=== PATIENT | female | born 1985 | race Caucasian/White ===

== ENCOUNTER 2019-08-17 01:57 | Inpatient (IN) ==
[2019-08-17] MEDS ORDERED: OXYTOCIN 30 UNITS/500 ML BAG IV PRN ×2 (02:17→05:17)
--- NOTE | 2019-08-17 02:21 | History & Physical Report ---
Date of Service August 17, 2019 Assessment & Plan (1) : Admit to L&D. Labs, EFM/toco, IV fluids. OK for epidural when she desires. Anticipate . History of Present Illness Chief Complaint: spontaneous labor Primary Care Provider: CLARIBEL PCP 34yo @ 41 0/7 presents with regular contractions and pelvic pressure. She had devi bulb placed last night in preparation for IOL for postdates. Since placement, contractions have become more frequent. No leaking of fluid. Scant vaginal bleeding. + movement. complicated by hypothyroidism. Allergies Allergy/AdvReac Type Severity Reaction Status Date / Time sulfamethoxazole AdvReac Severe Nausea Verified 08/17/19 02:21 [From Bactrim] Home Medications Home Medications Medication Instructions Recorded Confirmed Type PNV cmb#95-ferrous fumarate-FA 1 tab PO DAILY 01/22/19 08/17/19 History [] levothyroxine [Synthroid] 75 mcg PO DAILY 01/22/19 08/17/19 History Patient History Medical History 11 weeks gestation of History of varicella Hypothyroidism currently taking 75mcg of synthroid Surgical History S/P tonsillectomy at age 21 S/P wisdom tooth extraction at age 21 Family History Grandmother (Maternal) Cardiac disorder Grandmother (Paternal) Cardiac disorder Grandfather (Maternal) Cardiac disorder Grandfather (Paternal) Cardiac disorder Mother Hypertension Thyroid disease Father Hypertension Social History Preferred Language: Welsh 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 Devi bulb removed with gentle traction. FHT cat 1 Rough And Ready Q2 Constitutional: WD/WN, vitals as above Respiratory: normal respiratory effort, lungs clear to auscultation no respiratory distress Cardiovascular: Rate/Rhythm: regular rate and regular rhythm Gastrointestinal (Abdomen): Inspection/Auscultation: abdomen normal to inspection Percussion/Palpation: abdomen soft; abdomen nontender Gravid. No s/s chorio or abruption. Skin: no rashes, warm and dry Psychiatric: A+Ox3, euthymic affect Results & Data Vital Signs (Past 12 Hours) Vital Signs Pulse BP 08/17/19 02:17 84 134/89
[2019-08-17] MEDS ORDERED: BUPIVACAINE 0.25% 30 ML VIAL ONE (02:24)
[2019-08-17] MEDS ORDERED: ePHEDrine sulfate 50 MG/ML AMP ONE (02:24)
[2019-08-17] MEDS ORDERED: fentaNYL 2MCG/ML ROPIV 1.25MG/ML 100 ML BAG EPI ONE (02:25)
[2019-08-17] MEDS ORDERED: fentaNYL citrate 100 MCG/2 ML VIAL ONE (02:25)
[2019-08-17] MEDS: LACTATED RINGER'S 1,000 ML IV PRN ×2 (02:28→03:36)
[2019-08-17 02:32] LABS: Hematocrit (blood only) 35.6 % (37-47); Hemoglobin 12.7 g/dL (12.0-16.0); Mean Corpuscular Hemoglobin 32.2 pg (25-34); Mean Corpuscular Volume 90.4 fL (80-100); Mean Platelet Volume 10.7 fL (7.4-10.4); Platelet Count 202 K/uL (130-400); RDW Coefficient of Variation 14.7 % (11.5-14.5); RDW Standard Deviation 47.9 fL (36.4-46.3); Red Blood Count 3.94 M/uL (4.2-5.4); White Blood Count 12.37 K/uL (4.8-10.8)
[2019-08-17 02:34] LABS: Mean Corpuscular Hgb Conc 35.7 g/dL (32-36)
[2019-08-17] MEDS ORDERED: NALOXONE HCL 1 MG in SODIUM CHLORIDE 0.9% 1000ML 1,000 ML IV PRN (02:59)
[2019-08-17] MEDS ORDERED: NALOXONE HCL 0.4 MG/1 ML VIAL/CARP IV PRN (02:59)
[2019-08-17] MEDS ORDERED: ONDANSETRON INJ 2 MG/ML 2 ML VIAL IV PRN (02:59)
[2019-08-17] MEDS ORDERED: fentaNYL 2MCG/ML ROPIV 1.25MG/ML 100 ML BAG EPI PRN (02:59)
[2019-08-17] MEDS ORDERED: DiphenhydrAMINE HCL 50 MG/ML VIAL IV PRN (02:59)
[2019-08-17] MEDS ORDERED: ePHEDrine sulfate 50 MG/ML AMP IV PRN (02:59)
[2019-08-17] MEDS ORDERED: NALBUPHINE HCL INJ 10 MG/ML AMP IV PRN (02:59)
--- NOTE | 2019-08-17 03:02 | Anesthesiology Consultation ---
Date of Service August 17, 2019 Assessment & Plan Chart Review Chart Review: Patient NOT seen in Pre Admission Testing and Acceptable Risk for Labor Epidural Consults Requested none ASA ASA2 Proposed Anesthesia Anesthesia Type: Labor Epidural and CSE Risk / Benefits Reviewed With: PT / POA / Parent / Guardian, Accepts Plan and Informed Consent Obtained History Height/Weight Height: 5 ft 3 in Weight: 84.368 kg Allergies Allergy/AdvReac Type Severity Reaction Status Date / Time sulfamethoxazole AdvReac Severe Nausea Verified 08/17/19 02:21 [From Bactrim] Medications Home Medications Medication Instructions Recorded Confirmed Last Taken PNV cmb#95-ferrous fumarate-FA 1 tab PO DAILY 01/22/19 08/17/19 08/16/19 22:30 [] levothyroxine [Synthroid] 75 mcg PO DAILY 01/22/19 08/17/19 08/16/19 07:30 Active Medications Generic Name Dose Route Start Last Admin Trade Name Freq PRN Reason Stop Dose Admin Lactated Ringer's 1,000 mls @ 125 mls/hr 08/17/19 02:17 08/17/19 02:28 Lr IV 08/19/19 02:16 999 mls/hr .Q8H PRN Administration L&D Protocol Protocol NPO Date Last Intake of Fluids: 08/17/19 Time Last Intake of Fluids: 02:30 Date Last Intake of Solids: 08/16/19 Time Last Intake of Solids: 15:00 Past Medical History Medical History 11 weeks gestation of History of varicella Hypothyroidism currently taking 75mcg of synthroid Exercise / Class Metabolic Activity II 4-5 Yardwork/Stairs/Walk up hill Past Family History Family History Grandmother (Maternal) Cardiac disorder Grandmother (Paternal) Cardiac disorder Grandfather (Maternal) Cardiac disorder Grandfather (Paternal) Cardiac disorder Mother Hypertension Thyroid disease Father Hypertension Past Surgical History Surgical History S/P tonsillectomy at age 21 S/P wisdom tooth extraction at age 21 Past Anesthesia History No Hx of Anesthesia Complications and No Family Hx of Anesthesia Complications Social History Smoking Status: Never smoker Hx Alcohol Use: No Hx Substance Use: No Review of Systems no chest pain or sob Physical Exam Vital Signs Last Vital Signs Temp 36.7 C 08/17/19 02:18 Pulse 83 08/17/19 02:57 Resp 20 08/17/19 02:18 BP 134/89 08/17/19 02:18 Pulse Ox 98 08/17/19 02:57 ENMT Mouth: no TMJ abnormality Thyromental Distance: > or= 3.5 Finger Breadths Mallampati Class: II Neck normal visual inspection Respiratory normal respiratory effort Auscultation: lungs clear to auscultation bilaterally Cardiovascular Rate/Rhythm: regular rate and regular rhythm Musculoskeletal Spine: normal cervical ROM Neurologic moves all extremities Psychiatric Orientation: alert and oriented x 3 Testing Laboratory Results 08/17/19 02:23
--- NOTE | 2019-08-17 04:23 | Delivery Summary ---
Vaginal Delivery Summary Date of Service August 17, 2019 Vaginal Delivery Summary Vaginal Delivery Summary: Pre-delivery diagnoses: 34yo @ 41 0/7, cervical ripening and spontaneous labor, hypothyroidism Post-delivery diagnoses: same Procedure: spontaneous vaginal delivery, repair of 2nd degree perineal laceration and periclitoral laceration Surgeon: Eliza Barrera DO Complications: none Findings: Viable male . Apgars: 8/9 . Weight pending, please see nursery records. Estimated blood loss: 300ml Description of delivery: The patient progressed to complete with epidural anesthesia. She then began to push. She spontaneously vaginally delivered a viable from the cephalic presentation. The head delivered in LISETTE position. Nuchal cord x 1, tight, delivered through. The anterior shoulder delivered, followed by the posterior shoulder, followed by the body. The baby was placed on mother's abdomen and a spontaneous cry was heard. Delayed cord clamping was employed, and the cord was doubly clamped and cut. Cord blood was obtained. The placenta was delivered spontaneously intact with a 3-vessel cord. The uterus and vagina were swept of clots and debris. IV pitocin was given. The uterus became firm. The cervix, vagina, and perineum were inspected and a 2nd degree perineal laceration and a superficial periclitoral laceration were noted. These were repaired in standard fashion with 3-0 vicryl. Excellent hemostasis was observed. The mother and baby are recovering in stable and good condition in the room. Sponge, needle, and instrument counts were correct x 2. Eliza Barrera DO [facility]
[2019-08-17] MEDS ORDERED: BENZOCAINE 20% AER SPR 82.5 GM CAN EXT PRN (05:17)
[2019-08-17] MEDS ORDERED: OXYCODONE/ACETAMINOPHEN 5mg/325mg TAB PO PRN (05:17)
[2019-08-17] MEDS ORDERED: DIPHTHERIA/TETANUS/PERTUSSIS 0.5 ML SYR/VIAL IM ONE (05:17)
[2019-08-17] MEDS ORDERED: SUPERCREAM 0.870% 15 GM JAR EXT PRN (05:17)
[2019-08-17] MEDS ORDERED: bisacodyL 10 MG SUPP PR PRN (05:17)
[2019-08-17] MEDS ORDERED: HYDROCORTISONE ACETATE 25 MG SUPP PR PRN (05:17)
[2019-08-17] MEDS: ACETAMINOPHEN 325 MG TAB PO PRN ×4 (05:35→23:26)
--- NOTE | 2019-08-17 07:03 | Anesthesia Procedure Note ---
Date of Service August 17, 2019 Anesthesia Post Epidural Note Vital Signs Vital Signs: Temp Pulse Resp BP Pulse Ox 36.7 C 82 18 148/68 H 97 08/17/19 04:20 08/17/19 06:23 08/17/19 04:20 08/17/19 06:08/17/19 04:17 Pain Intensity Episiotomy/Laceration: Pain Intensity: 3 Notes Mental Status: alert / awake / arousable Nausea / Vomiting: adequately controlled Pain: adequately controlled Airway Patency, RR, SpO2: stable & adequate BP & HR: stable & adequate Hydration State: stable & adequate Neuraxial Anesthesia: was administered and sensory block is resolving Anesthetic Complications: no major complications apparent Epidural: Removed without complications and With tip intact
[2019-08-17] MEDS: LEVOTHYROXINE SODIUM 75 MCG TABLET PO SCH (07:13)
[2019-08-17] MEDS: PRENATAL VITAMIN 1 TAB PO SCH (07:49)
[2019-08-17] MEDS: IBUPROFEN 600 MG TAB PO PRN ×3 (07:49→20:30)
[2019-08-17] MEDS: DOCUSATE SODIUM 100 MG CAP PO SCH ×2 (07:49→20:30)
[2019-08-17] MEDS ORDERED: LEVOTHYROXINE SODIUM 75 MCG TABLET PO SCH (09:00)
[2019-08-18] MEDS: IBUPROFEN 600 MG TAB PO PRN ×5 (03:05→19:35)
--- NOTE | 2019-08-18 05:50 | Obstetrical Progress Note ---
Date of Service <Shyanne Cuevas - Last Filed: 08/18/19 06:46> August 18, 2019 Assessment & Plan <Shyanne Cuevas - Last Filed: 08/18/19 06:46> (1) Encounter for care and examination after delivery: 34 yo F PPD #1 following vaginal delivery at 41w0d, doing well and without complaints this morning. - PPD #1 - Feels well, ambulating well, voiding well. - Will continue routine care. - Following d/c will have f/u in 6 weeks. - Blood type O+, Rubella immune. Day #:: 1 <Jose Rock Jr, MD, FACOG - Last Filed: 08/18/19 08:00> (1) Encounter for care and examination after delivery: - going to try a humidifier in the room Subjective <Shyanne Cuevas - Last Filed: 08/18/19 06:46> Celi is a 34 yo female ; PPD # 1 following spontaneous vaginal delivery at 41w0d; doing well this AM; no abdominal cramping/pain; voiding well, passing gas but no BM; tolerating meals overnight, able to ambulate some within the room. Some persistent spotting this morning but improved from yesterday. Review of Systems Constitutional: denies fever, chills, sweats, headache Respiratory: denies SOB, difficulty breathing Cardiac: denies CP, chest palpitations, chest pressure Breast: denies breast pain : denies dysuria <Jose Rock Jr, MD, FACOG - Last Filed: 08/18/19 08:00> feels a little "stuffy" Physical Exam <Shyanne Cuevas - Last Filed: 08/18/19 06:46> General: patient is alert and oriented, in NAD Cardiac: +S1/S2, no murmurs rubs or gallops Respiratory: lungs CTA b/l, anteriorly and posteriorly, no wheezes rales or rhonchi, no increased work of breathing, symmetric chest rise, no respiratory distress Abdomen: soft, NT, +bowel sounds Uterus: uterine fundus firm, palpable 1cm below the umbilicus Lower Extremities: no LE edema or swelling, no deep calf pain, Yuly's sign negative b/l Results & Data <Shyanne Cuevas, DO - Last Filed: 08/18/19 06:46> Vital Signs (Past 12 Hours) Vital Signs Temp Resp BP Pulse Ox 08/17/19 23:30 36.7 C 16 109/67 97 08/17/19 20:15 36.7 C 20 127/78 97 Medications Administered Current Medications Acetaminophen (Tylenol) 650 mg PO Q6H PRN PRN Reason: Pain/CRESPO/Fever Stop: 09/16/19 05:16 Last Admin: 08/17/19 23:26 Dose: 650 mg Documented by: Benzocaine (Dermoplast Pain Relieving [place]) 1 appln EXT PRN PRN PRN Reason: Perineal Discomfort Stop: 09/16/19 05:16 Last Admin: 08/17/19 05:36 Dose: 82.5 appln Documented by: Bisacodyl (Dulcolax) 10 mg NV DAILY PRN PRN Reason: No BM on 2nd post- day Stop: 09/16/19 05:16 Bisacodyl (Dulcolax) 5 mg PO 1999 [facility] Stop: 08/18/19 20:01 Cocaine HCl (Supercream 0.870%) 1 gm EXT BID PRN PRN Reason: Hemorrhoidal Inflammation Stop: 08/31/19 05:16 Docusate Sodium (Colace) 100 mg PO DAILY@08,21 [facility] Stop: 09/16/19 07:59 Last Admin: 08/17/19 20:30 Dose: 100 mg Documented by: Hydrocortisone (Anusol Hc) 25 mg NV BID PRN PRN Reason: Hemorrhoidal Inflammation Stop: 09/16/19 05:16 Oxytocin (Pitocin) 30 units in 500 mls @ 333.333 mls/hr IV .Q1H30M PRN; Protocol PRN Reason: Bleeding Control Stop: 09/16/19 05:16 Ibuprofen (Motrin) 600 mg PO Q4H PRN PRN Reason: Pain/CRESPO/Cramping/Fever Stop: 09/16/19 05:16 Last Admin: 08/18/19 03:05 Dose: 600 mg Documented by: Levothyroxine Sodium (Synthroid) 75 mcg PO DAILYBB [facility] Stop: 09/16/19 06:29 Last Admin: 08/17/19 07:13 Dose: Not Given Documented by: Oxycodone/Acetaminophen (Percocet 5mg/325mg) 1 tab PO Q4H PRN PRN Reason: Pain not relieved by... Stop: 08/31/19 05:16 Prenat Multivit/Lucas/Iron/Folic Ac ( Vitamin) 1 tab PO DAILY@08 [facility] Stop: 09/16/19 07:59 Last Admin: 08/17/19 07:49 Dose: 1 tab Documented by: <Jose Rock Jr, MD, FACOG - Last Filed: 08/18/19 08:00> Co-Signing Physician Notes Resident Physician Supervision Note: I was present with Dr. Light during the history and exam. I discussed the case with the resident and agree with the findings and plan as documented in the note. Any exceptions or clarifications are listed here: Humidifer Documented By: Jose Rock Jr, MD, FACOG Resident Activity Tracking <Shyanne Cuevas DO - Last Filed: 08/18/19 06:46> Resident Involvement: Resident Care Provided Care Provided: Adult Hospital Medicine
[2019-08-18] MEDS: LEVOTHYROXINE SODIUM 75 MCG TABLET PO SCH (06:20)
[2019-08-18 07:19] LABS: Hematocrit (blood only) 29.3 % (37-47); Hemoglobin 10.2 g/dL (12.0-16.0); Mean Corpuscular Hemoglobin 32.1 pg (25-34); Mean Corpuscular Hgb Conc 34.8 g/dL (32-36); Mean Corpuscular Volume 92.1 fL (80-100); Mean Platelet Volume 10.7 fL (7.4-10.4); Platelet Count 171 K/uL (130-400); RDW Coefficient of Variation 15.3 % (11.5-14.5); RDW Standard Deviation 50.8 fL (36.4-46.3); Red Blood Count 3.18 M/uL (4.2-5.4); White Blood Count 10.33 K/uL (4.8-10.8)
[2019-08-18] MEDS: DOCUSATE SODIUM 100 MG CAP PO SCH ×2 (07:49→19:35)
[2019-08-18] MEDS: PRENATAL VITAMIN 1 TAB PO SCH (07:49)
[2019-08-18] MEDS: ACETAMINOPHEN 325 MG TAB PO PRN ×2 (10:58→17:25)
[2019-08-18] MEDS ORDERED: bisacodyL 5 MG TABEC PO SCH (20:00)
[2019-08-19] MEDS: IBUPROFEN 600 MG TAB PO PRN ×4 (02:45→20:22)
[2019-08-19] MEDS: ACETAMINOPHEN 325 MG TAB PO PRN (05:46)
[2019-08-19] MEDS: LEVOTHYROXINE SODIUM 75 MCG TABLET PO SCH (05:46)
--- NOTE | 2019-08-19 06:20 | Obstetrical Progress Note ---
Date of Service <Shyanne Cuevas - Last Filed: 08/19/19 07:00> August 19, 2019 Assessment & Plan <Shyanne Mason, DO - Last Filed: 08/19/19 07:00> (1) Encounter for care and examination after delivery: 34 yo F PPD #2 following vaginal delivery at 41w0d, doing well and without complaints this morning. - PPD #2 - Feels well, ambulating well, voiding well. - For discharge today. - Following d/c will have f/u in 6 weeks. - Blood type O+, Rubella immune. - Discussed discharge instructions with the pt and answered any questions. Day #:: 2 Subjective <Shyanne TsaiDO akiko - Last Filed: 08/19/19 07:00> Celi is a 34 yo female ; PPD # 2 following vaginal delivery at 41w0d; doing well this AM; no abdominal cramping/pain; voiding well, passing gas and +BM; tolerating meals overnight, able to ambulate some within the room. Some persistent spotting this morning but improved from yesterday. Review of Systems Constitutional: denies fever, chills, sweats, headache Respiratory: denies SOB, difficulty breathing Cardiac: denies CP, chest palpitations, chest pressure Breast: denies breast pain : denies dysuria Physical Exam <Shyanne Cuevas DO - Last Filed: 08/19/19 07:00> General: patient is alert and oriented, in NAD Cardiac: +S1/S2, no murmurs rubs or gallops Respiratory: lungs CTA b/l, anteriorly and posteriorly, no wheezes rales or rhonchi, no increased work of breathing, symmetric chest rise, no respiratory distress Abdomen: soft, NT, +bowel sounds Uterus: uterine fundus firm, palpable 2cm below the umbilicus Lower Extremities: no LE edema or swelling, no deep calf pain, Yuly's sign negative b/l Results & Data <Shyanne Cuevas DO - Last Filed: 08/19/19 07:00> Vital Signs (Past 12 Hours) Vital Signs Temp Pulse Resp BP 08/18/19 23:05 36.8 C 74 18 119/73 08/18/19 20:45 36.8 C 84 18 126/74 Laboratory Results Laboratory Results - last 24 hr 08/18/19 07:08 WBC 10.33 RBC 3.18 L Hgb 10.2 L Hct 29.3 L MCV 92.1 MCH 32.1 MCHC 34.8 RDW Std Deviation 50.8 H RDW Coeff of Rohit 15.3 H Plt Count 171 MPV 10.7 H Medications Administered Current Medications Acetaminophen (Tylenol) 650 mg PO Q6H PRN PRN Reason: Pain/CRESPO/Fever Stop: 09/16/19 05:16 Last Admin: 08/19/19 05:46 Dose: 650 mg Documented by: Benzocaine (Dermoplast Pain Relieving [place]) 1 appln EXT PRN PRN PRN Reason: Perineal Discomfort Stop: 09/16/19 05:16 Last Admin: 08/17/19 05:36 Dose: 82.5 appln Documented by: Bisacodyl (Dulcolax) 10 mg [place] DAILY PRN PRN Reason: No BM on 2nd post- day Stop: 09/16/19 05:16 Cocaine HCl (Supercream 0.870%) 1 gm EXT BID PRN PRN Reason: Hemorrhoidal Inflammation Stop: 08/31/19 05:16 Last Admin: 08/18/19 15:29 Dose: 1 gm Documented by: Docusate Sodium (Colace) 100 mg PO DAILY@08,21 [facility] Stop: 09/16/19 07:59 Last Admin: 08/18/19 19:35 Dose: 100 mg Documented by: Hydrocortisone (Anusol Hc) 25 mg [place] BID PRN PRN Reason: Hemorrhoidal Inflammation Stop: 09/16/19 05:16 Oxytocin (Pitocin) 30 units in 500 mls @ 333.333 mls/hr IV .Q1H30M PRN; Protocol PRN Reason: Bleeding Control Stop: 09/16/19 05:16 Ibuprofen (Motrin) 600 mg PO Q4H PRN PRN Reason: Pain/CRESPO/Cramping/Fever Stop: 09/16/19 05:16 Last Admin: 08/19/19 02:45 Dose: 600 mg Documented by: Levothyroxine Sodium (Synthroid) 75 mcg PO DAILYBB [facility] Stop: 09/16/19 06:29 Last Admin: 08/19/19 05:46 Dose: 75 mcg Documented by: Oxycodone/Acetaminophen (Percocet 5mg/325mg) 1 tab PO Q4H PRN PRN Reason: Pain not relieved by... Stop: 08/31/19 05:16 Prenat Multivit/Incident Response Engineer/Iron/Folic Ac ( Vitamin) 1 tab PO DAILY@08 [facility] Stop: 09/16/19 07:59 Last Admin: 08/18/19 07:49 Dose: 1 tab Documented by: <Abrahan Mcbride MD, FACOG - Last Filed: 08/19/19 07:11> Co-Signing Physician Notes Resident Physician Supervision Note: I was present with Dr. Light during the history and exam. I discussed the case with the resident and agree with the findings and plan as documented in the note. Any exceptions or clarifications are listed here: [None] Documented By: Abrahan Mcbride MD, FACOG Resident Activity Tracking <Shyanne Cuevas DO - Last Filed: 08/19/19 07:00> Resident Involvement: Resident Care Provided Care Provided: Adult Hospital Medicine
[2019-08-19 07:20] LABS: Hematocrit (blood only) 28.1 % (37-47); Hemoglobin 9.5 g/dL (12.0-16.0)
[2019-08-19] MEDS: PRENATAL VITAMIN 1 TAB PO SCH (08:51)
[2019-08-19] MEDS: DOCUSATE SODIUM 100 MG CAP PO SCH ×2 (08:51→20:22)
== END 2019-08-19 20:55 | disposition home or self-care (01) | DRG 807 ==
LOC: 4S1 01:57 → 4S2 07:23

== ENCOUNTER 2024-06-04 12:58 | Inpatient (IN) ==
[2024-06-04] MEDS ORDERED: ACETAMINOPHEN 500 MG TAB PO PRN (14:25)
[2024-06-04] MEDS ORDERED: CALCIUM CARBONATE 500 MG CHEWABLE TAB PO PRN (14:25)
[2024-06-04] MEDS ORDERED: LIDOCAINE 1% LOCAL 20 ML VIAL INFIL PRN (14:25)
--- NOTE | 2024-06-04 14:27 | History & Physical Report ---
Date of Service June 04, 2024 Assessment & Plan (1) demise before 22 weeks with retention of fetus: Plan: Celi is a 38-year-old G4, P2 with a demise measuring at 20 weeks 5 days gestational age based on ultrasound yesterday. Has opted to proceed with induction of labor will start with Cytotec 800 mcg patient dose and will continue to redosing at 400 mcg every 3-4 hours until delivery. Findings reviewed with patient again today and answered all questions. Admission and Anticipated Discharge Date Admission Date: June 04, 2024 History of Present Illness Primary Care Provider: Virginia Gupta DO Celi is a 38-year-old G4, P2 with a demise diagnosed yesterday in clinic measuring at 20 weeks 5 days gestational age. Reviewed findings from imaging again today. The diagnosis of the demise and available treatment options. Has opted for induction of labor. Allergies Allergy/AdvReac Type Severity Reaction Status Date / Time trimethoprim [From Bactrim] Allergy Intermediate NAUSEA/VOMI Verified 06/03/24 10:52 TING sulfamethoxazole AdvReac Severe Nausea Verified 06/03/24 10:52 [From Bactrim] Home Medications Medication Instructions Recorded Confirmed Type vit no.95-ferrous 1 tab PO DAILY 01/22/19 06/04/24 History fumarate 28 mg-folic acid 800 mcg tablet () levothyroxine 75 mcg tablet 75 mcg PO DAILY 03/08/21 06/04/24 History (Synthroid) metoclopramide HCl 10 mg tablet 10 mg PO Q6H PRN nausea and 02/09/24 06/04/24 Rx (Reglan) vomiting #14 tabs cholecalciferol (vitamin D3) 25 25 mcg PO DAILY 02/20/24 06/04/24 History mcg (1,000 unit) capsule (Vitamin D3) diphenhydramine HCl 50 mg capsule 50 mg PO HS PRN SLEEP/NAUSEA 02/20/24 06/04/24 History (Unisom SleepGels) doxylamine 10 mg-pyridoxine (vit 1 tab PO DAILY #14 tabs 02/20/24 06/04/24 Rx B6) 10 mg tablet,delayed release (Diclegis) promethazine 12.5 mg rectal 12.5 mg [place] Q6H PRN nausea and 02/20/24 06/04/24 Rx suppository vomiting #12 ea pyridoxine (vitamin B6) 100 mg 100 mg PO HS 02/20/24 06/03/24 History tablet (Vitamin B-6) ondansetron 4 mg disintegrating 4 mg PO Q6H PRN nausea and 04/09/24 06/04/24 Rx tablet vomiting #20 tabs Patient History Medical History Dysmenorrhea Nocturia Insomnia Adult hypothyroidism Acute left otitis media Sinusitis RAD (reactive airway disease) with wheezing Ganglion cyst of wrist Hair loss History of varicella + chicken pox Hypothyroidism currently taking 75mcg of synthroid Surgical History S/P tonsillectomy at age 21 S/P wisdom tooth extraction at age 21 Family History Grandmother (Maternal) Cardiac disorder Grandmother (Paternal) Cardiac disorder Myocardial infarction Grandfather (Maternal) Cardiac disorder Colorectal cancer Grandfather (Paternal) Cardiac disorder Myocardial infarction Mother Hypertension Thyroid disease Father Hypertension Myocardial infarction dec Aunt Breast cancer Denies family history of Ovarian cancer Prostate cancer Social History Smoking Status: Never smoker Do You Dip or Chew Tobacco: No; Hx Alcohol Use: No Hx Substance Use: No 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 Beliefs That Will Affect Care: None marital status: Current Living Situation: Family Current Living Situation Comment: lives with spouse, 2 children, dog, cat- spouse changing litter current occupational status: other current occupation: homemaker Other Information That Helps Us Care for You: No Feels Safe at Home: Yes Safety Concerns: Feels Safe At This Time Assistive Devices: None Physical Exam Genitourinary: normal external appearance Manual OB Exam: + cervical dilation (Closed) Results & Data Vital Signs (Past 12 Hours) Vital Signs Temp Pulse Resp BP 06/04/24 13:33 85 132/80 06/04/24 13:20 36.6 C 18 Coding Level of Care Code 57207 INT INP/OBS CARE 2/55MIN Diagnoses demise before 22 weeks with retention of fetus O36.4XX0
[2024-06-04] MEDS: miSOPROStoL 200 MCG TAB PV ONE (14:37)
[2024-06-04] MEDS ORDERED: IBUPROFEN 800 MG TAB PO PRN (14:55)
[2024-06-04 15:15] LABS: Hematocrit (blood only) 35.3 % (37.0-47.0); Hemoglobin 12.5 g/dl (12.0-16.0); Mean Corpuscular Hemoglobin 31.9 pg (25.0-34.0); Mean Corpuscular Hgb Conc 35.4 g/dL (32.0-36.0); Mean Corpuscular Volume 90.1 fL (80.0-100.0); Mean Platelet Volume 10.5 fL (9.4-12.4); Platelet Count 230 K/uL (130-400); RDW Coefficient of Variation 13.2 % (11.5-14.5); RDW Standard Deviation 42.8 fL (36.4-46.3); Red Blood Count 3.92 M/uL (4.20-5.40); White Blood Count 9.95 K/ul (4.8-10.8)
[2024-06-04] MEDS: miSOPROStoL 200 MCG TAB SL SCH (17:38)
[2024-06-04] MEDS: LACTATED RINGER'S 1,000 ML IV PRN (20:05)
[2024-06-04] MEDS ORDERED: BUPIVACAINE 0.25% PF 30 ML VIAL EPI PRN (20:06)
[2024-06-04] MEDS ORDERED: NALOXONE HCL 1 MG in SODIUM CHLORIDE 0.9% 1,000 ML IV PRN (20:06)
[2024-06-04] MEDS ORDERED: NALBUPHINE HCL 5 MG in SYRINGE 0 ML IV PRN (20:06)
[2024-06-04] MEDS ORDERED: ePHEDrine sulfate 50 MG/ML AMP IV PRN (20:06)
[2024-06-04] MEDS ORDERED: SODIUM CHLORIDE 0.9% PF INJ 10 ML VIAL EPI PRN (20:06)
[2024-06-04] MEDS ORDERED: NALOXONE HCL 0.4 MG/1 ML VIAL/CARP IV PRN (20:06)
[2024-06-04] MEDS ORDERED: LIDOCAINE 2% MPF LOCAL 5 ML VIAL EPI PRN (20:06)
[2024-06-04] MEDS ORDERED: diphenhydrAMINE 50 MG/ML VIAL IV PRN (20:06)
[2024-06-04] MEDS ORDERED: fentaNYL citrate PF 100 MCG/2 ML VIAL EPI PRN (20:06)
[2024-06-04] MEDS ORDERED: ROPIVACAINE 0.5% PF 5 MG/ML 20 ML VIAL EPI PRN (20:06)
--- NOTE | 2024-06-04 20:09 | Anesthesiology Consultation ---
Date of Service June 04, 2024 Assessment & Plan ASA ASA2 Proposed Anesthesia Anesthesia Type: Labor Epidural Risk / Benefits Reviewed With: PT / POA / Parent / Guardian, Accepts Plan and Informed Consent Obtained History Height/Weight Height: 5 ft 3 in Weight: 82.1 kg Allergies Allergy/AdvReac Type Severity Reaction Status Date / Time trimethoprim [From Bactrim] Allergy Intermediate NAUSEA/VOMI Verified 06/03/24 10:52 TING sulfamethoxazole AdvReac Severe Nausea Verified 06/03/24 10:52 [From Bactrim] Medications Home Medications Medication Instructions Recorded Confirmed Last Taken vit no.95-ferrous 1 tab PO DAILY 01/22/19 06/04/24 02/20/24 fumarate 28 mg-folic acid 800 mcg tablet () levothyroxine 75 mcg tablet 75 mcg PO DAILY 03/08/21 06/04/24 06/04/24 07:00 (Synthroid) metoclopramide HCl 10 mg tablet 10 mg PO Q6H PRN nausea and 02/09/24 06/04/24 Unknown (Reglan) vomiting #14 tabs cholecalciferol (vitamin D3) 25 25 mcg PO DAILY 02/20/24 06/04/24 02/20/24 mcg (1,000 unit) capsule (Vitamin D3) diphenhydramine HCl 50 mg capsule 50 mg PO HS PRN SLEEP/NAUSEA 02/20/24 06/04/24 Unknown (Unisom SleepGels) doxylamine 10 mg-pyridoxine (vit 1 tab PO DAILY #14 tabs 02/20/24 06/04/24 Unknown B6) 10 mg tablet,delayed release (Diclegis) promethazine 12.5 mg rectal 12.5 mg [place] Q6H PRN nausea and 02/20/24 06/04/24 Unknown suppository vomiting #12 ea pyridoxine (vitamin B6) 100 mg 100 mg PO HS 02/20/24 06/03/24 02/19/24 tablet (Vitamin B-6) ondansetron 4 mg disintegrating 4 mg PO Q6H PRN nausea and 04/09/24 06/04/24 Unknown tablet vomiting #20 tabs Active Medications Generic Name Dose Route Start Last Admin Trade Name Freq PRN Reason Stop Dose Admin Lactated Ringer's 1,000 mls @ 125 mls/hr 06/04/24 14:25 06/04/24 20:05 Lr IV 06/06/24 14:24 999 mls/hr .Q8H PRN Administration L&D Protocol Protocol Misoprostol 400 mcg 06/04/24 17:15 06/04/24 17:38 Misoprostol 200 Mcg Tab SL 07/04/24 17:14 400 mcg Q3H MYRNA Administration Past Medical History Medical History Dysmenorrhea Nocturia Insomnia Adult hypothyroidism Acute left otitis media Sinusitis RAD (reactive airway disease) with wheezing Ganglion cyst of wrist Hair loss History of varicella + chicken pox Hypothyroidism currently taking 75mcg of synthroid Exercise / Class Metabolic Activity II 4-5 Yardwork/Stairs/Walk up hill Past Family History Family History Grandmother (Maternal) Cardiac disorder Grandmother (Paternal) Cardiac disorder Myocardial infarction Grandfather (Maternal) Cardiac disorder Colorectal cancer Grandfather (Paternal) Cardiac disorder Myocardial infarction Mother Hypertension Thyroid disease Father Hypertension Myocardial infarction dec Aunt Breast cancer Denies family history of Ovarian cancer Prostate cancer Past Surgical History Surgical History S/P tonsillectomy at age 21 S/P wisdom tooth extraction at age 21 Past Anesthesia History No Hx of Anesthesia Complications and No Family Hx of Anesthesia Complications History of PONV No Hx of PONV and No Hx of Motion Sickness Social History Smoking Status: Never smoker Do You Dip or Chew Tobacco: No Hx Alcohol Use: No Hx Substance Use: No substance use type: does not use Review of Systems denies fever/cough/ colds/ chest pain/ SOB/ JORDAN denies JORDAN Physical Exam Vital Signs Last Vital Signs Temp 36.6 C 06/04/24 13:20 Pulse 93 H 06/04/24 20:43 Resp 20 06/04/24 16:17 BP 114/58 L 06/04/24 20:43 Pulse Ox 97 06/04/24 20:41 ENMT Mouth: no TMJ abnormality and no dentition abnormality Thyromental Distance: > or= 3.5 Finger Breadths Mallampati Class: II Neck neck extension not limited Respiratory normal respiratory effort; no respiratory distress Auscultation: lungs clear to auscultation bilaterally Cardiovascular Rate/Rhythm: regular rate and regular rhythm Neurologic moves all extremities Psychiatric Orientation: alert and oriented x 3 Testing Laboratory Results 06/04/24 14:56 Blood Type O Positive 06/04/24 14:56 Antibody Screen NEGATIVE 06/04/24 14:56
[2024-06-04] MEDS: fentANYL 2 MCG/ML BUPIVacaine 0.125%-NSS 100ML BAG ONE (20:33)
[2024-06-04] MEDS: LIDOCAINE 2%/EPINEPHRINE 1:200,000 20 ML PF ONE (20:38)
[2024-06-04] MEDS: BUPIVACAINE 0.25% PF 30 ML VIAL ONE (20:38)
[2024-06-04] MEDS: fentaNYL citrate PF 100 MCG/2 ML VIAL ONE (20:39)
[2024-06-04] MEDS: SODIUM CHLORIDE 0.9% PF INJ 10 ML VIAL EPI STA (20:40)
[2024-06-04] MEDS: LIDOCAINE 2%/EPINEPHRINE 1:200,000 20 ML PF EPI STA (20:40)
[2024-06-04] MEDS: BUPIVACAINE 0.25% PF 30 ML VIAL EPI STA (20:40)
[2024-06-04] MEDS: fentaNYL citrate PF 100 MCG/2 ML VIAL EPI STA (20:40)
[2024-06-04] MEDS: SODIUM CHLORIDE 0.9% PF INJ 10 ML VIAL ONE (20:40)
--- NOTE | 2024-06-04 23:02 | Labor Progress Brief Note ---
Date of Service June 04, 2024 Subjective Reason For Note: Routine Evaluation Doing well with epidural in place Assessment & Plan (1) demise before 22 weeks with retention of fetus: Plan: Celi is a 38-year-old G4, P2 with a demise measuring at 20 weeks 5 days gestational age based on ultrasound yesterday. Has opted to proceed with induction of labor will start with Cytotec 800 mcg patient dose and will continue to redosing at 400 mcg every 3-4 hours until delivery. Findings reviewed with patient again today and answered all questions. Cervix still closed will continue with Cytotec dosing. Admission and Anticipated Discharge Date Admission Date: June 04, 2024 Physical Exam Genitourinary: Manual OB Exam: + cervical dilation (closed) Results & Data Vital Signs (Past 12 Hours) Vital Signs Temp Pulse Resp BP Pulse Ox 06/04/24 22:56 85 97 06/04/24 22:55 82 131/61 06/04/24 22:51 80 98 06/04/24 22:46 82 98 06/04/24 22:41 84 100 06/04/24 22:39 78 131/72 06/04/24 22:36 82 100 06/04/24 22:31 94 H 100 06/04/24 22:26 132 H 100 06/04/24 22:24 84 132/63 06/04/24 22:21 76 98 06/04/24 22:16 76 100 06/04/24 22:11 78 99 06/04/24 22:09 82 133/68 06/04/24 22:06 73 98 06/04/24 22:01 73 98 06/04/24 21:56 76 99 06/04/24 21:55 75 134/71 06/04/24 21:51 84 99 06/04/24 21:46 82 100 06/04/24 21:41 78 99 06/04/24 21:40 75 132/65 06/04/24 21:36 78 99 06/04/24 21:31 78 100 06/04/24 21:26 80 99 06/04/24 21:25 82 131/61 06/04/24 21:21 77 98 06/04/24 21:16 77 99 06/04/24 21:11 76 99 06/04/24 21:10 75 120/58 L 06/04/24 21:06 73 98 07/12/24 21:01 76 98 06/04/24 20:56 75 98 06/04/24 20:54 80 156/70 H 06/04/24 20:51 82 98 06/04/24 20:48 81 117/57 L 06/04/24 20:46 82 98 06/04/24 20:43 93 H 114/58 L 06/04/24 20:42 90 123/61 06/04/24 20:41 97 06/04/24 20:41 84 06/04/24 20:41 88 125/55 L 06/04/24 20:40 86 115/58 L 06/04/24 20:39 87 114/61 06/04/24 20:38 94 H 112/64 06/04/24 20:37 85 126/64 06/04/24 20:36 82 98 06/04/24 20:34 95 H 146/86 H 06/04/24 20:33 88 148/83 H 06/04/24 20:31 92 H 99 06/04/24 20:26 90 100 06/04/24 20:24 76 142/79 H 06/04/24 19:40 37.2 C 75 18 138/79 06/04/24 19:30 37.2 C 18 06/04/24 16:17 74 20 133/77 06/04/24 13:33 85 132/80 06/04/24 13:20 36.6 C 18 Coding Level of Care Code None Diagnoses demise before 22 weeks with retention of fetus O36.4XX0
[2024-06-04] MEDS: ePHEDrine sulfate 50 MG/ML AMP ONE (23:30)
[2024-06-04] MEDS: ONDANSETRON INJ 2 MG/ML 2 ML VIAL IV PRN (23:35)
[2024-06-05] MEDS: fentANYL 2 MCG/ML BUPIVacaine 0.125%-NSS 100ML BAG EPI PRN (04:09)
[2024-06-05] MEDS: OXYTOCIN 30 UNITS/NSS 30 UNITS/500 ML BAG IV PRN (07:58)
--- NOTE | 2024-06-05 08:40 | Delivery Summary ---
Vaginal Delivery Summary Date of Service June 05, 2024 Vaginal Delivery Summary [facility] Patient admitted for a 20-week demise patient with Cytotec. Fetus spontaneously delivered and was followed by placenta approximately 60 to 90 minutes later. No complications noted with delivery. Blood loss per QBL but was within normal range. [facility] Vaginal Delivery Charge Delivery Type Details: [facility]
[2024-06-05] MEDS ORDERED: HYDROCORTISONE ACETATE 25 MG SUPP PR PRN (09:00)
[2024-06-05] MEDS ORDERED: BENZOCAINE 20% SPRY 85 APPLN/85 GM CAN EXT PRN (09:00)
[2024-06-05] MEDS ORDERED: bisacodyL 10 MG SUPP PR PRN (09:00)
[2024-06-05] MEDS ORDERED: ACETAMINOPHEN 325 MG TAB PO PRN (09:00)
[2024-06-05] MEDS ORDERED: DIPHTHER/TETAN/PERTUS Vaccine (Tdap, Adol/Adult) 0.5mL IM ONE (09:00)
[2024-06-05] MEDS ORDERED: OXYTOCIN 30 UNITS/NSS 30 UNITS/500 ML BAG IV PRN (09:00)
--- NOTE | 2024-06-05 10:10 | Anesthesia Procedure Note ---
Date of Service June 05, 2024 Anesthesia Post Epidural Note Vital Signs Vital Signs: Temp Pulse Resp BP Pulse Ox 98.8 F 74 18 117/59 L 98 06/05/24 03:00 06/05/24 09:54 06/05/24 03:00 06/05/24 09:54 06/05/24 08:11 Notes Mental Status: alert / awake / arousable and participated in evaluation Nausea / Vomiting: adequately controlled Pain: adequately controlled Airway Patency, RR, SpO2: stable & adequate BP & HR: stable & adequate Hydration State: stable & adequate Neuraxial Anesthesia: was administered and sensory block is resolving Anesthetic Complications: no major complications apparent and Pt Satisfied with anesthetic care Epidural: Removed without complications and With tip intact
[2024-06-05] MEDS: IBUPROFEN 600 MG TAB PO PRN (12:47)
--- NOTE | 2024-06-05 13:34 | Obstetrical Progress Note ---
Date of Service June 05, 2024 Assessment & Plan (1) demise before 22 weeks with retention of fetus: vaginal delivery of IUFD and placenta- bleeding is now small plan on discharge when she has met all post delivery milestones will plan to follow up in the office in 2 weeks. Subjective Ambulation: limited ambulation (tingling in her feet) Voiding: no voiding problems Passing Gas:: Yes Diet Tolerance:: regular diet Lochia:: Small Review of Systems All systems reviewed & are unremarkable except as noted in HPI & below Physical Exam Constitutional WD/WN, vitals as above Psychiatric A+Ox3, euthymic affect Results & Data Vital Signs (Past 12 Hours) Vital Signs Temp Pulse Resp BP Pulse Ox 06/05/24 11:47 98.2 F 71 20 125/70 06/05/24 11:39 77 119/66 06/05/24 11:24 80 122/68 06/05/24 11:10 81 124/72 06/05/24 10:54 79 18 119/56 L 06/05/24 10:39 77 125/60 06/05/24 10:25 86 123/69 06/05/24 10:09 71 113/56 L 06/05/24 09:54 74 117/59 L 06/05/24 09:39 68 115/59 L 06/05/24 09:24 76 109/56 L 06/05/24 09:09 70 115/56 L 06/05/24 08:55 70 113/53 L 06/05/24 08:39 72 127/62 06/05/24 08:24 66 115/66 06/05/24 08:11 79 98 06/05/24 08:10 75 125/70 06/05/24 08:06 78 97 06/05/24 08:01 97.9 F 84 20 98 06/05/24 07:56 81 98 06/05/24 07:51 73 99 06/05/24 07:46 73 99 06/05/24 07:41 71 99 06/05/24 07:40 77 209/80 H 06/05/24 07:36 80 98 06/05/24 07:31 75 96 06/05/24 07:26 76 97 06/05/24 07:24 78 120/65 06/05/24 07:21 76 97 06/05/24 07:16 75 97 06/05/24 07:11 76 98 06/05/24 07:09 77 130/72 06/05/24 07:06 82 98 06/05/24 07:01 81 100 06/05/24 06:56 90 100 06/05/24 06:51 123 H 100 06/05/24 06:46 79 98 06/05/24 06:41 79 98 06/05/24 06:39 83 124/69 06/05/24 06:36 69 98 06/05/24 06:31 73 99 06/05/24 06:26 72 97 06/05/24 06:24 71 123/74 06/05/24 06:21 70 97 06/05/24 06:16 70 95 06/05/24 06:11 96 06/05/24 06:11 77 06/05/24 06:11 75 93 06/05/24 06:09 67 117/73 06/05/24 06:06 71 96 06/05/24 06:01 69 96 06/05/24 05:56 74 99 06/05/24 05:51 80 100 06/05/24 05:46 78 99 06/05/24 05:41 74 97 06/05/24 05:39 71 133/63 06/05/24 05:36 74 99 06/05/24 05:31 76 95 06/05/24 05:26 99 06/05/24 05:26 80 06/05/24 05:26 68 138/59 L 06/05/24 05:21 73 97 06/05/24 05:16 68 96 06/05/24 05:11 68 95 06/05/24 05:09 75 103/56 L 06/05/24 05:08 68 94 06/05/24 05:06 66 95 06/05/24 05:01 65 95 06/05/24 04:56 64 95 06/05/24 04:54 77 101/54 L 06/05/24 04:51 64 95 06/05/24 04:46 63 96 06/05/24 04:41 65 96 06/05/24 04:39 71 103/58 L 06/05/24 04:36 65 96 06/05/24 04:31 68 96 06/05/24 04:26 69 95 06/05/24 04:24 69 110/56 L 06/05/24 04:21 66 96 06/05/24 04:16 62 97 06/05/24 04:11 72 98 06/05/24 04:09 72 118/66 06/05/24 04:06 84 98 06/05/24 04:01 77 96 06/05/24 03:56 67 95 06/05/24 03:54 74 109/57 L 06/05/24 03:51 66 95 06/05/24 03:46 68 96 06/05/24 03:41 71 96 06/05/24 03:40 67 111/59 L 06/05/24 03:36 69 95 06/05/24 03:31 70 95 06/05/24 03:28 69 94 06/05/24 03:26 65 95 06/05/24 03:24 73 103/60 06/05/24 03:21 71 95 06/05/24 03:16 67 96 06/05/24 03:11 70 95 06/05/24 03:09 82 123/63 06/05/24 03:06 70 95 06/05/24 03:01 76 96 06/05/24 03:00 18 06/05/24 03:00 98.8 F 18 06/05/24 02:56 75 96 06/05/24 02:55 75 122/59 L 06/05/24 02:51 96 06/05/24 02:51 77 06/05/24 02:51 70 120/67 06/05/24 02:46 77 97 06/05/24 02:41 72 97 06/05/24 02:36 75 97 06/05/24 02:31 81 96 06/05/24 02:26 76 96 06/05/24 02:24 84 127/57 L 06/05/24 02:21 68 96 06/05/24 02:16 83 96 06/05/24 02:11 69 95 06/05/24 02:10 81 123/60 06/05/24 02:06 72 95 06/05/24 02:01 80 95 06/05/24 01:58 81 94 06/05/24 01:56 84 97 06/05/24 01:55 78 123/63 06/05/24 01:51 80 95 06/05/24 01:46 80 95 06/05/24 01:41 75 96 06/05/24 01:39 83 139/63 06/05/24 01:36 71 95
[2024-06-05] MEDS ORDERED: DOCUSATE SODIUM 100 MG CAP PO SCH (21:00)
[2024-06-06] MEDS ORDERED: FERROUS SULFATE 325 MG TAB PO SCH (08:00)
[2024-06-06] MEDS ORDERED: PRENATAL VITAMIN 1 TAB PO SCH (08:00)
[2024-06-06] MEDS ORDERED: bisacodyL 5 MG TABEC PO SCH (20:00)
== END 2024-06-05 17:07 | disposition home or self-care (01) | DRG 807 ==
LOC: 4S1 12:58